=== PATIENT | male | born 1960 | race Caucasian/White ===

== ENCOUNTER 2020-10-21 04:23 | Day surgery (SDC) | payer BC, SELFPAY ==
[2020-10-13 14:55] VITALS: BMI 41.8
--- NOTE | 2020-10-21 09:15 | WPDANESEPPF ---
Anes - Initial Pre Proc Eval Procedure: Operation Date: 10/21/20 12:00 Proposed Procedures p Screening Colonoscopy - Jann Leal MD Date/Time: 10/21/20 09:15 Surgeon: Jann Leal MD Pre Op Diagnosis: neoplasm screening Patient Data Age: 60 Gender: M Height: 1.73 m Weight: 125 kg Allergies Allergy/AdvReac Type Severity Reaction Status Date / Time No Known Allergies Allergy Verified 10/21/20 11:12 Home Medications Medication Instructions Recorded Confirmed Type aspirin [Adult Aspirin] 81 mg PO DAILY 10/13/20 10/13/20 History atorvastatin 80 mg PO DAILY 10/13/20 10/13/20 History cholecalciferol (vitamin D3) 50 mcg PO DAILY 10/13/20 10/13/20 History [Vitamin D3] metoprolol succinate 12.5 mg PO DAILY 10/13/20 10/13/20 History Patient hx anesthesia problems: none Family hx anesthesia problems: none PMFSH Past Medical History Medical History (Updated 10/21/20 @ 11:27 by Jann Leal MD) CAD (coronary artery disease) HTN (hypertension) Hx of myocardial infarction Hyperlipidemia Morbid obesity with BMI of 40.0-44.9, adult RANDI on CPAP Surgical History Surgical History (Updated 10/21/20 @ 09:16 by Jose Roe MD) History of coronary artery stent placement Social History Social History Smoking status: Never smoker Living arrangements: alone Spiritual care concerns: No Anes - Eval Final PreProcedure Day of Procedure 10/21/20 09:15 Patient weight: obese Heart: regular rate and rhythm Lungs: clear to auscultation and normal air movement Airway: Mallampati scale class II Neurological: alert and oriented Last oral intake: >/= 8 hours ASA classification: III Emergent: no Anesthetic plan: proceed Anesthesia type and monitoring: general GIVS Informed Consent: The patient's anesthetic plan and its attendant risks and benefits were discussed with the patient/family/POA. Questions were solicited and answers provided to the satisfaction of the patient/family/POA.
[2020-10-21 11:14] VITALS: BP 139/80; PULSE 74; RESP 18; TEMP 35.7; O2SAT 99
[2020-10-21] MEDS: LACTATED RINGERS 1,000 ML 150 ML IV CONT (11:18)
--- NOTE | 2020-10-21 11:26 | P.CONGI_ITS ---
Assessment and Plan Assessment and plan (1) Encounter for screening colonoscopy: Code(s): Z12.11 - Encounter for screening for malignant neoplasm of colon Status: Acute Assessment and Plan: Patient presents for screening colonoscopy. Appears to be at average risk for colon polyps. GI Consult Note Consult date/time: 10/21/20 11:26 HPI: Jann Morton is a 60 year old male Presents for screening colonoscopy. Patient reports that his weight appetite bowel movements are normal. He denies abdominal pain. He has had no bleeding. His last colonoscopy was 10 years ago. Family history is noncontributory. Review of Systems Review of Systems: All systems reviewed & are unremarkable except as noted in HPI and below PMFSH Past Medical History Medical History (Updated 10/21/20 @ 11:27 by Jann Leal MD) CAD (coronary artery disease) HTN (hypertension) Hx of myocardial infarction Hyperlipidemia Morbid obesity with BMI of 40.0-44.9, adult RANDI on CPAP Surgical History Surgical History (Updated 10/21/20 @ 09:16 by Jose Roe MD) History of coronary artery stent placement Social History Social History Smoking status: Never smoker Living arrangements: alone Spiritual care concerns: No Meds Home Medications and Allergies Home Medications Medication Instructions Recorded Confirmed Type aspirin [Adult Aspirin] 81 mg PO DAILY 10/13/20 10/13/20 History atorvastatin 80 mg PO DAILY 10/13/20 10/13/20 History cholecalciferol (vitamin D3) 50 mcg PO DAILY 10/13/20 10/13/20 History [Vitamin D3] metoprolol succinate 12.5 mg PO DAILY 10/13/20 10/13/20 History Allergies Allergy/AdvReac Type Severity Reaction Status Date / Time No Known Allergies Allergy Verified 10/21/20 11:12 Vital Signs Vital Signs - 24 hr 10/21/20 11:14 Temperature 96.2 F L Pulse Rate 74 Respiratory Rate 18 Blood Pressure 139/80 Pulse Oximetry 99 Exam Narrative: Physical exam reveals patient be alert. Vital signs stable. HEENT exam is unremarkable. Patient is anicteric. Lungs are clear to au scultation and percussion. Heart is without murmur or extra sounds. Abdominal exam bowel sounds present soft nontender with no organomegaly. Digital external rectal exam is normal.
[2020-10-21 12:10] VITALS: BP 124/63; PULSE 60; RESP 16; O2SAT 96
[2020-10-21 12:20] VITALS: BP 125/61; PULSE 61; RESP 19; O2SAT 98
[2020-10-21 12:30] VITALS: BP 125/82; PULSE 60; RESP 18; O2SAT 95
== END 2020-10-21 12:47 | disposition home or self-care (01) ==
PROVIDERS: PCP Internal Medicine; Visit Provider Internal Medicine Gastroenterology
PROC: 0DJD8ZZ Inspection of Lower Intestinal Tract, Via Natural or Artificial Opening Endoscopic (ICD-10-PCS; CPT 45378; principal; 2020-10-21 12:00)
DX: Z12.11 Encounter for screening for malignant neoplasm of colon (principal); I25.10 Atherosclerotic heart disease of native coronary artery without angina pectoris; I10 Essential (primary) hypertension; E78.5 Hyperlipidemia, unspecified; I25.2 Old myocardial infarction; E66.01 Morbid (severe) obesity due to excess calories; G47.33 Obstructive sleep apnea (adult) (pediatric); Z95.5 Presence of coronary angioplasty implant and graft; K64.8 Other hemorrhoids
CPT/HCPCS: 45378; J2704; J7120

== ENCOUNTER 2022-11-05 05:59 | Emergency (ER) | payer BC, SELFPAY ==
--- NOTE | ~2022-11-05 | XR_ITS ---
EXAMINATION: XR hip RT min 2V DATE: 11/05/2022 07:00 INDICATION: Right hip pain TECHNIQUE: Two views of right hip were obtained. COMPARISON: None. FINDINGS: Bone alignment is normal. There is no fracture. There is mild osteoarthritis of the hip. Ca lcified atherosclerosis is noted. IMPRESSION: 1. No acute osseous abnormality. Reviewed, dictated and finalized at location A.
--- NOTE | ~2022-11-05 | XR_ITS ---
EXAMINATION: XR femur RT min 2V INDICATION: Right leg pain TECHNIQUE: Two views of the right femur are obtained on four radiographs COMPARISON: None available FINDINGS: Bone alignment is normal. There is no fracture. There is mild osteoarthritis of the hip and knee. Calcified atherosclerosis is noted. IMPRESSION: 1. No acute osseous abnormality. Reviewed, dictated and finalized at location A.
--- NOTE | ~2022-11-05 | XR_ITS ---
EXAMINATION: XR tibia fibula RT 2V INDICATION: Left leg pain TECHNIQUE: Two views of the left tibia and fibula are obtained. COMPARISON: None available FINDINGS: Bone alignment is normal. There is no fracture. There is mild osteoarthritis at the knee an d ankle. IMPRESSION: 1. No acute osseous abnormality. Reviewed, dictated and finalized at location A.
[2022-11-05 06:10] VITALS: BP 128/66; PULSE 58; RESP 16; TEMP 36.4; O2SAT 99
--- NOTE | 2022-11-05 08:59 | ED.EXTPRO ---
HPI - Extremity Problem General Chief complaint: Extremity Injury, Lower Stated complaint: left leg/hip pain Time Seen by Provider: 11/05/22 08:52 Source: patient Mode of arrival: ambulatory Limitations: no limitations History of Present Illness HPI Narrative: Jann is a 62-year-old male patient presenting to the clinic today with complaints of left posterior, lateral hip pain radiating down to the knee x1-2 days. Pain is sharp and tingling. Pain is 6/10. Took tylenol this morning at 0500 without relief. Reports no known injury. States he was on the floor with the grand kids earlier this week and fell as though he may have tweaked it. Is having difficulty sleeping, standing, and sitting due to the pain. Denies any saddle anesth or loss of bowel/bladder. Related Data Home Medications Medication Instructions Recorded Confirmed aspirin 81 mg tablet 81 mg PO DAILY 10/13/20 10/13/20 atorvastatin 80 mg tablet 80 mg PO DAILY 10/13/20 10/13/20 cholecalciferol (vitamin D3) 50 50 mcg PO DAILY 10/13/20 10/13/20 mcg (2,000 unit) capsule (Vitamin D3) metoprolol succinate 25 mg 12.5 mg PO DAILY 10/13/20 10/13/20 tablet,extended release 24 hr Allergies Allergy/AdvReac Type Severity Reaction Status Date / Time No Known Allergies Allergy Verified 02/22/21 16:12 Review of Systems Review of Systems: Pertinent positives per HPI. Patient denies any fever, chills, rash, headache, visual changes, dizziness, cough, runny nose, sore throat, shortness of breath, chest pain, palpitations, nausea, vomiting, diarrhea, constipation, abdominal pain, or any urinary issues. [facility] Past Medical History Medical History CAD (coronary artery disease) HTN (hypertension) Hx of myocardial infarction Hyperlipidemia Morbid obesity with BMI of 40.0-44.9, adult RANDI on CPAP Surgical History Surgical History History of coronary artery stent placement Family History Family History Other Acute myocardial infarction Family history of heart disease in male family member before age 55 Social History Social History Smoking status: Never smoker Alcohol intake: current Living arrangements: alone Spiritual care concerns: No Comments At the time of my signature, I reviewed and agree with the nursing past medical, surgical, social, and family history. There is no relevant family history pertinent to the patient complaint. Exam Narrative: General: Well-developed, well nourished, in no apparent distress Head: Normocephalic, atraumatic. Cardio: Regular rate and rhythm, s1 and s2 normal, no murmur appreciated. Resp: Clear to auscultation bilaterally, no rhonchi, rales, wheezing or rubs. Musculoskeletal: No deformity, tender to palpation over the left posterior hip/si joint and pain is radiating into the left lateral hip and down left leg, pain with flexion/extension of the left hip over the posterior and lateral hip, grossly normal range of motion, muscle strength strong and equal, peripheral pulse strong, no edema, no cyanosis, normal gait and station Course Course Emergency Course: Portions of this record may have been created with voice recognition software. Vital Signs Vital signs: Vital Signs Temperature 36.4 C L 11/05/22 06:10 Pulse Rate 58 L 11/05/22 06:10 Respiratory Rate 16 11/05/22 06:10 Blood Pressure 128/66 11/05/22 06:10 Pulse Oximetry 99 11/05/22 06:10 Oxygen Delivery Room Air 11/05/22 06:10 Temperature 36.4 C L 11/05/22 06:10 Pulse Rate 58 L 11/05/22 06:10 Respiratory Rate 16 11/05/22 06:10 Blood Pressure 128/66 11/05/22 06:10 Pulse Oximetry 99 11/05/22 06:10 Oxygen Delivery Room Air 11/05/22 06:10 Vital signs reviewed [facility] -
[2022-11-05] MEDS: KETOROLAC (*BKC) 60 MG/2 ML VIAL IM (09:36)
[2022-11-05 10:04] VITALS: BP 130/70; PULSE 60; RESP 16; TEMP 36.6; O2SAT 100
== END 2022-11-05 10:06 | disposition home or self-care (01) ==
PROVIDERS: Emergency Provider Nurse Practitioner Family; PCP Internal Medicine
DX: M53.3 Sacrococcygeal disorders, not elsewhere classified (principal); M54.16 Radiculopathy, lumbar region; I25.10 Atherosclerotic heart disease of native coronary artery without angina pectoris; I10 Essential (primary) hypertension; I25.2 Old myocardial infarction; E78.5 Hyperlipidemia, unspecified; G47.30 Sleep apnea, unspecified; E66.9 Obesity, unspecified; Z68.41 Body mass index [BMI] 40.0-44.9, adult
CPT/HCPCS: 73502; 73552; 73590; 96372; 99284; J1885